=== PATIENT | male | born 2000 | race Caucasian/White ===

== ENCOUNTER 2019-01-02 10:51 | Emergency (ER) | payer MEDICAID ==
[~2019-01-02] VITALS: Ht 180.3 cm; Wt 81.6 kg
[2019-01-02 11:03] VITALS: BP 121/74
--- NOTE | 2019-01-02 11:07 | NUR ---
ED Nurse Note: pt present at ER c/o sore throat 03/31 with coughing for 4 days and brown phlem. pt aao x4 and calm. skin clean and intact but pale.
[2019-01-02] MEDS ORDERED: PREDNISONE20 MG ORAL (11:48)
[2019-01-02] MEDS ORDERED: PROMETHAZINE-D118 ML ORAL (11:48)
[2019-01-02] MEDS ORDERED: TAMIFLU75 MG ORAL (11:48)
[2019-01-02] MEDS ORDERED: ALBUTEROL SULF8.5 GM INH (11:48)
[2019-01-02 12:10] VITALS: BP 107/73
--- NOTE | 2019-01-02 12:10 | NUR ---
ER DISCHARGE NOTE: Patient is cleared to be discharged per ERMD, pt is aox4, accompanied by significant other, on room air, with stable vital signs. pt was given dc and prescription instructions and doctor's note to return to work on 01/07/2019, pt was able to verbalize understanding, pt id band removed. pt is able to ambulate with steady gait. pt took all belongings.
--- NOTE | 2019-01-06 07:00 | Emergency Room Report ---
History of Present Illness General Chief Complaint: Sore Throat Source: Patient Present Illness HPI 17-year-old male presents ED for evaluation. Complaining of sore throat, cough and congestion for the last 4 days. Pain is dull, 7 out of 10, nonradiating. Notes cough productive with yellowish phlegm. Notes history of asthma. Denies smoking or drug use at this time. Residing in a sober living facility. States other members of the facility are also presenting with similar symptoms. Did not receive flu shot this year. No other aggravating relieving factors. Denies any other associated symptoms Allergies: Coded Allergies: No Known Allergies (Unverified , 01/02/19) Patient History Past Medical History: asthma Past Surgical History: none Pertinent Family History: none Social History: Denies: smoking, alcohol use, drug use Immunizations: UTD Reviewed Nursing Documentation: PMH: Agreed; PSxH: Agreed Nursing Documentation-PMH Past Medical History: No Stated History Review of Systems All Other Systems: negative except mentioned in HPI Physical Exam Vital Signs Date Time Temp Pulse Resp B/P (MAP) Pulse Ox O2 Delivery O2 Flow Rate FiO2 01/02/19 10:58 98.2 73 18 121/74 95 Room Air Sp02 EP Interpretation: reviewed, normal General Appearance: no apparent distress, alert, GCS 15, non-toxic Head: normocephalic, atraumatic Eyes: bilateral eye normal inspection, bilateral eye PERRL ENT: hearing grossly normal, normal pharynx, no angioedema, normal voice Neck: full range of motion, supple/symm/no masses Respiratory: chest non-tender, speaking full sentences, wheezing Cardiovascular #1: regular rate, rhythm, no edema Cardiovascular #2: 2+ carotid (R), 2+ carotid (L), 2+ radial (R), 2+ radial (L) , 2+ dorsalis pedis (R), 2+ dorsalis pedis (L) Gastrointestinal: normal bowel sounds, non tender, soft, non-distended, no guarding, no rebound Rectal: deferred Genitourinary: normal inspection, no CVA tenderness Musculoskeletal: back normal, gait/station normal, normal range of motion, non- tender Neurologic: alert, oriented x3, responsive, motor strength/tone normal, sensory intact, speech normal Psychiatric: judgement/insight normal, memory normal, mood/affect normal, no suicidal/homicidal ideation Reflexes: 3+ bicep (R), 3+ bicep (L), 3+ tricep (R), 3+ tricep (L), 3+ knee (R) , 3+ knee (L) Skin: normal color, no rash, warm/dry, well hydrated Lymphatic: no adenopathy Medical Decision Making Diagnostic Impression: Primary Impression: Flu-like symptoms ER Course Hospital Course 18-year-old M presents to ED complaining of sore throat, bodyaches, chills Differential diagnoses include: URI, pharyngitis, otitis media, influenza Clinical course Patient placed on stretcher. After initial history physical exam reveals a male in no acute distress. Bilateral TM unremarkable, no pharyngeal erythema. wheezing on exam. No CVA tenderness. I offered breathing treatment here but patient declined. States he will accept a inhaler prescription Saturation for influenza. We'll discharge for Tamiflu. Safe for discharge close outpatient follow-up. We'll provide PMD referrals Diagnosis - influenza-like symptoms Stable and discharged home with prescriptions for tamiflu, albuterol, promethazine. drink plenty of fluids. Instructed to followup with PMD. Return to ED if symptoms recur or worsen Last Vital Signs Date Time Temp Pulse Resp B/P (MAP) Pulse Ox O2 Delivery O2 Flow Rate FiO2 01/02/19 12:10 98.8 86 17 107/73 95 Room Air Status: improved Disposition: HOME, SELF-CARE Condition: Stable Scripts D-Methorphan Hb/Prometh Hcl* (PROMETHAZINE-DM SYRUP*) 118 Ml Syrup 5 ML ORAL Q6H PRN for For Cough, #118 ML 0 Refills Prov: Israel Harrell MD 01/02/19 Oseltamivir Phosphate (Tamiflu) 75 Mg Capsule 75 MG ORAL TWICE A DAY for 5 Days, CAP Prov: Israel Harrell MD 01/02/19 Prednisone* (PREDNISONE*) 20 Mg Tablet 40 MG ORAL DAILY, #10 TAB Prov: Israel Harrell MD 01/02/19 Albuterol Sulfate* (ALBUTEROL SULFATE MDI*) 8.5 Gm Hfa.aer.ad 2 PUFF INH Q6H, #1 EA 0 Refills Prov: Israel Harrell MD 3/14/19 Referrals: YAMILETH ORTIZ (PCP) [facility] Patient Instructions: Influenza, Adult, [id number] Additional Instructions: patient excused from group activities as to not other other members sick Israel Harrell MD Jan 06, 2019 07:00
== END 2019-01-02 12:10 | disposition home or self-care (01) ==
LOC: EMR 12:05
DX: R07.0 Pain in throat (principal); R05 Cough
CPT/HCPCS: 99282